=== PATIENT | male | born 1980 | race Two or more races ===

== ENCOUNTER 2025-02-11 14:54 | Emergency (ER) | payer MEDICAID, SELFPAY ==
[2025-02-11 15:16] VITALS: BP 125/80; PULSE 99; RESP 20; TEMP 37; O2SAT 96
--- NOTE | 2025-02-11 15:33 | XR_ITS ---
Examination: CT cervical spine without contrast 2-D sagittal reconstructions 2-D coronal reconstructions 3-D reconstructions. Exam date and time:February 11, 2025, 1702 hrs. Indications: Onset right-sided neck pain beginning 4 days ago CTDI:vol (mGy) 19.1 DLP: (mGycm) 504 Technique: Multiple 2 mm axial sections of the cervical spine have been obtained. The coronal and sagittal reconstructions have been obtained. 3-D reconstructions have been obtained. Low dose protocols were performed. One or more of the following dose reduction techniques were used; automated exposure control, adjustment of the mA and/or KV according to patient size, use of iterative reconstruction technique. Findings: Axial sections demonstrate intact base of the skull. C1 exhibit satisfactory relationship to the odontoid. No acute cervical vertebral body fracture seen. Alignment posterior spinous processes satisfactory. Straightening normal cervical lordosis Moderate degenerative disc disease C5-C6 C4-C5 moderate bilateral neural foraminal stenosis C5-C6 2 mm osteophyte disc complex centrally Impression: No acute cervical fracture. Moderate degenerative disc disease C5-C6 C4-C5 moderate bilateral neural foraminal stenosis C5-C6 2 mm central osteophyte disc complex If symptoms persist, MRI cervical spine without contrast follow-up would be preferable in assessing for acquired soft tissue spinal stenosis
--- NOTE | 2025-02-11 15:36 | XR_ITS ---
Examination: PA lateral chest 2 views Technique: Upright PA lateral chest 2 views Date and time: February 11, 2025 1545 hrs. Indications: Chest pain today Findings: Normal heart size Lungs are clear. The osseous structures are intact Impression: No active disease
--- NOTE | 2025-02-11 15:37 | PD.EDRME ---
Rapid Medical Screening Exam E Arrival date/time: 02/11/25 14:54 This is a 44-year-old male that was seen yesterday with complaints of right posterior lateral neck patient states that he felt better after he left yesterday and he was able to get about 3 hours of sleep but then the pain came back and it is worse. Patient's reports no numbness or no tingling. Patient states that he has pain that radiates down to his shoulder blades and sometimes to his chest. He feels most of pain is coming from his neck and it is just radiating to these other areas. Patient is a smoker, is diabetic and has high blood pressure. Patient denies any shortness of breath . Patient denies any trauma Chief Complaint: Neck Pain/Injury Time Seen by Provider: 02/11/25 15:13 Vital signs: Vital Signs Temperature 98.6 F 02/11/25 15:16 Pulse Rate 99 02/11/25 15:16 Respiratory Rate 20 02/11/25 15:16 Blood Pressure 125/80 02/11/25 15:16 Pulse Oximetry (%) 96 02/11/25 15:16 Oxygen Delivery Method Room Air 02/11/25 15:16
--- NOTE | 2025-02-11 16:25 | PC.NURSE ---
PT CALLED BACK. NO RESPONSE X1 @2114. LOBBY AND OUTSIDE CHECKED
[2025-02-11 16:42] LABS: Basophils # (Auto) 0.1 Thou/mm3 (0.0-0.2); Basophils % (Auto) 1 % (0-2.5); Eosinophils # (Auto) 0.3 Thou/mm3 (0.0-0.5); Eosinophils % (Auto) 3 % (0-10); Hematocrit 48.7 % (41.0-53.0); Hemoglobin 17.0 g/dL (13.5-16.0); Immature Granulocytes Auto 0.03 Thou/mm3 (0.00-0.00); Lymphocytes # (Auto) 3.2 Thou/mm3 (1.0-4.8); Lymphocytes % (Auto) 37 % (10-50); Mean Corpuscular HGB Conc 34.9 g/dl (31.0-37.0); Mean Corpuscular Hemoglobin 30.6 pg (25.0-35.0); Mean Corpuscular Volume 88 fL (80-100); Monocytes # (Auto) 0.6 Thou/mm3 (0.0-0.8); Monocytes % (Auto) 6 % (0-12); Neutrophils # (Auto) 4.6 Thou/mm3 (1.8-7.7); Neutrophils % (Auto) 52 % (37-80); Nucleated Red Blood Cell # 0.00 Thou/mm3 (0.00-0.00); Nucleated Red Blood Cell % 0 /100 WBC (0); Platelet Count 160 Thou/mm3 (140-440); RDW Standard Deviation 42.0 fL (35.1-43.9); Red Blood Count 5.56 Miln/mm3 (4.50-5.90); White Blood Count 8.7 Thou/mm3 (3.8-10.6)
[2025-02-11] MEDS: HYDROcodone/APAP 5/325 TABLET 2 TAB PO (16:46)
[2025-02-11] MEDS: METOCLOPRAMIDE 5 MG TABLET 10 MG PO (16:46)
[2025-02-11 17:06] LABS: B-Type Natriuretic Peptide 31 pg/mL (0-100)
[2025-02-11 17:09] LABS: Alanine Aminotransferase 18 U/L (10-49); Albumin, Serum 4.3 gm/dL (3.5-5.0); Albumin/Globulin Ratio 1.8 (1.2-2.2); Alkaline Phosphatase 47 U/L (46-116); Anion Gap 7 (7-16); Aspartate Amino Transferase 12 U/L (0-34); BUN/Creatinine Ratio 19 Ratio (12-20); Bilirubin,Total 0.5 mg/dL (0.3-1.2); Blood Urea Nitrogen 15 mg/dL (9-23); Calcium 9.4 mg/dL (8.3-10.6); Calcium (Corrected) 9.4 mg/dL (8.5-10.1); Carbon Dioxide 23.5 mMol/L (20.0-31.0); Chloride 112 mMol/L (98-107); Creatinine (Component) 0.8 mg/dL (0.6-1.3); Estimated Creatinine Clearance 145.5 mL/min (>60); Globulin 2.4 gm/dL (2.3-3.5); Glucose 111 mg/dL (74-106); Osmolality,Calculated 284 (275-295); Potassium 4.0 mMol/L (3.4-5.1); Sodium 142 mMol/L (136-145); Total Protein 6.7 gm/dL (5.7-8.2); Troponin I < 0.002 ng/mL (0.0-0.045); eGFR > 60 See Note
--- NOTE | 2025-02-11 18:26 | PD.EDNECK ---
ED Neck Injury Pain RME/HPI General Chief Complaint: Neck Pain/Injury Stated Complaint: NECK PAIN (11/23) Time Seen by Provider: 02/11/25 15:13 Arrival date/time: 02/11/25 14:54 RME / HPI RME / HPI Narrative: 02/11/25 14:54 This is a 44-year-old male that was seen yesterday with complaints of right posterior lateral neck patient states that he felt better after he left yesterday and he was able to get about 3 hours of sleep but then the pain came back and it is worse. Patient's reports no numbness or no tingling. Patient states that he has pain that radiates down to his shoulder blades and sometimes to his chest. He feels most of pain is coming from his neck and it is just radiating to these other areas. Patient is a smoker, is diabetic and has high blood pressure. Patient denies any shortness of breath . Patient denies any trauma DR. JACKSON MAIN ED EVALUATION: Patient presents with right posterior neck pain noted upon awakening x 3 days [employer] with absence of trauma. Denies fever, chills, UE radiculopathy. Increasing pain with extension of head and rotation. Reports some relief with direct pressure to right posterior paracervical region. PMH: DM, Hypercholesterolemia. PSH: Non-contributory. Allergies: None Social: Long-term smoker, denies alcohol or illicit drug use. Related Data Home Medications ?Medication ?Instructions ?Recorded ?Confirmed acetaminophen 325 mg capsule 500 mg PO Q4H PRN Pain 03/26/19 03/26/19 (Tylenol) ibuprofen 200 mg tablet (Motrin IB) 800 mg PO Q6H PRN Pain 03/26/19 03/26/19 Previous Rx's ?Medication ?Instructions ?Recorded metformin 500 mg tablet 500 mg PO BID #30 tabs 03/26/19 metformin 500 mg tablet 500 mg PO QDAY #30 tabs 04/02/22 diclofenac sodium 0.1 % eye drops 1 drp ophthalmic (eye) Q6H PRN eye 03/05/24 pain #5 mL cyclobenzaprine 10 mg tablet 10 mg PO TID PRN muscle spasm #20 02/10/25 tabs ibuprofen 800 mg tablet 800 mg PO Q6H PRN pain #20 tabs 02/10/25 diazepam 2 mg tablet 2 mg PO BID PRN muscle spasm #14 02/11/25 tabs hydrocodone 5 mg-acetaminophen 325 1 tab PO Q8H PRN pain #24 tabs 02/11/25 mg tablet naproxen 500 mg tablet (Naprosyn) 500 mg PO BID PRN pain #10 tabs 02/11/25 Allergies Allergy/AdvReac Type Severity Reaction Status Date / Time No Known Allergies Allergy Verified 02/11/25 14:56 Review of Systems Review of Systems Systems Reviewed: All systems reviewed, normal except as documented Past Medical History Past Medical History CARDIAC: Positive Hypercholesterolemia ENDOCRINE: Positive Endocrine Disorders and Diabetes Mellitus Type 2 Social History SMOKING STATUS: Current every day smoker ED Exam Narrative Physical exam: GEN. APPEARANCE: The patient is alert awake oriented X-3 in mild distress c/o right posterior neck pain, lying down comfortably, does not look ill/toxic. Patient has good eye contact. Patient is cooperative. VITALS: All vitals were reviewed and the pulse ox is 96% on room air which is normal according to my interpretation. HEENT: Normocephalic, atraumatic. Pupils are equal and reactive. Oral mucosa is moist. Patent Nares NECK: Supple. Negative axial compression test, pain reproduced with extension and rotation, no midline tenderness, TTP right paracervical at cervicothoraci, no thyromegaly, no meningismus, no JVD, no step offs CHEST: Symmetrical, atraumatic, and with equal expansion , Nontender on palpation no deformity and no crepitus. CARDIOVASCULAR: Heart regular rhythm no murmur or gallop rub or extra beats. LUNGS: Clear to auscultation bilaterally with symmetrical chest rise. No laboring tachypnea or wheezing. No intercostal subcostal retraction. No rales and no rhonchi. ABDOMEN: Soft, flat, nontender to palpation, no guarding or rebound tenderness. There are no abnormal masses palpated. Active and normal bowel sounds. EXTREMITIES: Nontender. No edema. No cyanosis. Patient is able to move all 4 extremities well, with full ROM and good CSM. SKIN: Warm and dry, no jaundice or rashes noted. MUSCULOSKELETAL: No lubar or midline bony tenderness. There is no CVA tenderness. No paraspinal muscle spasm or tenderness. NEURO: Patient is GODFREY x 4, Cranial nerves II through XII grossly intact. There is no focal neurologic deficits noted. GCS is 15, PNS and [employer] appear grossly intact. PSYCHIATRIC: Patient is in normal mood and affect, cooperative, no SI or HI or hallucinations. Course Quality Measures none Orders Category Date Time Status EKG (ED ONLY) *Do not use* NOW Care 02/11/25 15:[address] cervical spine wo con Stat Exams 02/11/25 15:33 Completed EKG (ED Only) Stat Exams 02/11/25 15:36 Ordered XR chest 2V Stat Exams 02/11/25 15:36 Completed BNP [B-Type Natriuretic Peptide] Stat Lab 02/11/25 16:23 Completed CBC Stat Lab 02/11/25 16:23 Completed Comprehensive Metabolic Panel Stat Lab 02/11/25 16:23 Completed Troponin I Stat Lab 02/11/25 16:23 Completed HYDROcodone*/APAP 5/325 [Pennock 5/325] Med 02/11/25 15:33 Discontinued 2 tab PO X1 ONE Metoclopramide [Reglan] Med 02/11/25 15:36 Discontinued 10 mg PO X1 ONE Vital Signs Vital signs: Vital Signs Temperature 98.6 F 02/11/25 15:16 Pulse Rate 99 02/11/25 15:16 Respiratory Rate 20 02/11/25 15:16 Blood Pressure 125/80 02/11/25 15:16 Pulse Oximetry (%) 96 02/11/25 15:16 Oxygen Delivery Method Room Air 02/11/25 15:16 Neck Pain MDM Narrative MDM Narrative:: Scribe Attestation: Alyssa Richey am scribing for and in the presence of Dr. Jackson. Provider Notation: Although this document has been carefully reviewed, there may still be some phonetic and other typographical errors. These errors are purely grammatical due to imperfections in the software program and should not be construed in any way to compromise the substance of the patient's medical care during this visit. Patient presents with right posterior neck pain noted upon awakening x 3 days [employer] with absence of trauma. Denies fever, chills, UE radiculopathy. Please see PE findings. Laboratory markers including CBC demonstrates WBC of 8.7, hemoconcentration withb hemoglobin of 17, norm platelet count with no left shift or associated bandemia. Serum chemistries essentially unremarkable. UA demonstrates concentration. Special studies such as CT of the cervical spine demonstrates straigtening of the normal cervical lordosis and moderate degenerative disc disease at C-5 to C-6. There's additional BL neuro-foramenal stenosis. CXR unremarkable. Will treat with combination of muscle relaxants anti inflammatory and pain medication. Will place in soft c-collar and discharge to home. Recommend close f/u with PMD for possible MRI should symptoms persist. Patient data External records reviewed:: [facility] previous records (Reviewed prior ED records from 02/10/25. Patient was seen for Strain of neck muscle.) Clinical information provided by:: patient Social determinants that could affect healthcare access:: none Patient has the following chronic illnesses:: Hypercholesterolemia, Type II DM How is presenting disease/condition affected by chronic disease/condition?: uneffected by Evaluation data The following diagnostics were reviewed and interpreted by me:: lab results and radiology exam(s) Lab and/or radiology exams considered but not ordered:: None Interpretation Summary: RADIOLOGY Chest X-Ray: Findings: Normal heart size Lungs are clear. The osseous structures are intact Impression: No active disease Cervical Spine CT: Findings: Axial sections demonstrate intact base of the skull. C1 exhibit satisfactory relationship to the odontoid. No acute cervical vertebral body fracture seen. Alignment posterior spinous processes satisfactory. Straightening normal cervical lordosis Moderate degenerative disc disease C5-C6 C4-C5 moderate bilateral neural foraminal stenosis C5-C6 2 mm osteophyte disc complex centrally Impression: No acute cervical fracture. Moderate degenerative disc disease C5-C6 C4-C5 moderate bilateral neural foraminal stenosis C5-C6 2 mm central osteophyte disc complex If symptoms persist, MRI cervical spine without contrast follow-up would be preferable in assessing for acquired soft tissue spinal stenosis Medications / Prescriptions Medications or Prescriptions considered but not ordered:: None Medication administrations:: Medication Administration History Discontinued Medications Hydrocodone Bitart/Acetaminophen (Hydrocodone/Apap 5/325 Tablet) 2 tab PO X1 ONE Stop: 02/11/25 15:34 Last Admin: 02/11/25 16:46 Dose: 2 tab Documented By: ARTI Metoclopramide HCl (Metoclopramide 5 Mg Tablet) 10 mg PO X1 ONE Stop: 02/11/25 15:37 Last Admin: 02/11/25 16:46 Dose: 10 mg Documented By: ARTI See above if any Consultations Consultation(s) initiated? (list below): No Diagnosis Neck Differential Diagnosis: disc disorder of cervical region, closed subluxation of cervical spine, fracture of cervical spine without lesion of spinal cord, cervical radiculopathy, torticollis, cervical spondylosis and strain of neck muscle Most likely diagnosis given after review of the tests above:: Degenerative joint disease of cervical spine Admission Indicated Admission indicated?: not indicated Explain why admission is indicated or not indicated:: Patient does not meet admission criteria Admission Request Was there a request for admission?: No Disposition Plan Disposition Plan: Discharge Discharge Attestation Discharge Attestation: The patient and all family members were given an opportunity to ask questions and understood the discharge instructions. Discharge instructions specifically effects, indications for sooner follow up or return to the emergency department, and the expected course of current diagnosis. Patient condition: Stable Discharge Plan Plan Patient Disposition: HOME (Self Care) Discharge Disposition comment: Stable Prescriptions/Referrals Prescriptions/Med Rec: No Action ibuprofen [Motrin IB] 200 mg Tablet 800 mg PO Q6H PRN (Reason: Pain) acetaminophen [Tylenol] 325 mg Capsule 500 mg PO Q4H PRN (Reason: Pain) metformin 500 mg tablet 500 mg PO BID Qty: 30 0RF metformin 500 mg tablet 500 mg PO QDAY Qty: 30 0RF diclofenac sodium 0.1 % drops 1 drp ophthalmic (eye) Q6H PRN (Reason: eye pain) Qty: 5 0RF cyclobenzaprine 10 mg tablet 10 mg PO TID PRN (Reason: muscle spasm) Qty: 20 0RF ibuprofen 800 mg tablet 800 mg PO Q6H PRN (Reason: pain) Qty: 20 0RF Referrals: Marshall Thomas MD [Primary Care Provider, Family Practice] - In 1 week Problem List Clinical Impression: Degenerative joint disease of cervical spine Patient/Caregiver Discharge Instructions Discharge Activity: activity as tolerated Education Materials: ED Degenerative Disk Disease, ED Neck Pain No Trauma Additional Instructions: Ice compresses alternate with warm moist heat. Gentle massage multiple therapy acceptable modalities. Avoid chiropractic therapy. Medication as directed. Follow-up with primary care in 5 to 7 days for consideration of MRI should symptoms not be greater than 60% improved. Print Language: Hebrew Stand Alone Forms: [employer] Award Info., Patient Portal Info Letter
--- NOTE | 2025-02-11 19:06 | PC.NURSE ---
NO ANSWER FOR MEDS AND DC
[2025-02-11] MEDS: PROCHLORPERAZINE INJ 5 MG/ML VIAL 2 ML IM (19:15)
[2025-02-11] MEDS: MORPHINE SULF INJ 4 MG/ML VIAL IM (19:16)
== END 2025-02-11 19:32 | disposition home or self-care (01) ==
PROVIDERS: Nurse Practitioner Family; Emergency Provider Emergency Medicine; PCP Family Medicine
DX: M47.812 Spondylosis without myelopathy or radiculopathy, cervical region (principal); M50.322 Other cervical disc degeneration at C5-C6 level; M48.02 Spinal stenosis, cervical region; M25.78 Osteophyte, vertebrae; R07.9 Chest pain, unspecified; E78.00 Pure hypercholesterolemia, unspecified
CPT/HCPCS: 36415; 71046; 72125; 80053; 83880; 84484; 85025; 93005; 96372; 99284; J0780; J2270; A9270